=== PATIENT | male | born 1985 | race Caucasian/White ===

== ENCOUNTER 2016-12-27 22:18 | Emergency (ER) | payer BC ==
[~2016-12-27] VITALS: Wt 208.0 kg
[2016-12-27] MEDS ORDERED: ONDANSETRON 4 MG INJ IV STA (22:49)
[2016-12-27] MEDS ORDERED: morphine 4 MG/ML VIAL IV STA (22:49)
[2016-12-27] MEDS ORDERED: SOD CHLORIDE 0.9% 1,000 ML IV STA (22:49)
[2016-12-27] MEDS ORDERED: TAMS-14 PO (23:04)
[2016-12-27] MEDS ORDERED: PHEN-538 PO (23:04)
--- NOTE | 2016-12-27 23:04 | ERD ---
ER Documentation Chief Complaint Date/Time DATE: 12/27/16 TIME: 23:02 Chief Complaint Flank Pain and hematuria for one week. recently diagnosed with kidney stone HPI 28-year-old male presents to emergency department for complaint of flank pain and hematuria for one week now, patient was in a urologist, was diagnosed to have renal stone, patient was given medication ibuprofen and Flomax to help her symptoms with only mild relief, patient discussed the pain as sharp pain, 9/10 scale, is worse upon urination accompanied with hematuria. Patient denies any fever or chills. Patient then got worse tonight. Patient denies any penile discharge. Patient denies any abdominal pain. Patient denies any dizziness. ROS All systems reviewed and are negative except as per history of present illness. Medications Home Meds Reported Medications Phenazopyridine Hcl* (Pyridium*) Unknown Strength Tab, PO TID Y for URINARY PAIN , #6 TAB 12/27/16 Tamsulosin Hcl* (Flomax*) Unknown Strength Cap.er.24h, PO BID, #30 CAP 12/27/16 Allergies Allergies: Coded Allergies: Penicillins (Verified Allergy, Unknown, rash, 12/27/16) metoclopramide (Verified Allergy, Unknown, restlessness, 12/27/16) PMhx/Soc Medical and Surgical Hx: pt denies Medical Hx History of Surgery: Yes ([facility] 2013) Anesthesia Reaction: No Hx Neurological Disorder: No Hx Respiratory Disorders: No Hx Cardiac Disorders: No Hx Psychiatric Problems: No Hx Miscellaneous Medical Probl: No Hx Alcohol Use: No Hx Substance Use: No Hx Tobacco Use: Yes Smoking Status: Former smoker FmHx Family History: No coronary disease, No diabetes, No other Physical Exam Vitals Vital Signs Date Time Temp Pulse Resp B/P Pulse Ox O2 Delivery O2 Flow Rate FiO2 12/27/16 22:23 99.5 108 20 169/97 100 Physical Exam GENERAL: The patient is well developed and appropriate for usual state of health, in no apparent distress. CHEST: Clear to auscultation bilaterally. There are no rales, wheezes or rhonchi. HEART: Regular rate and rhythm. No murmurs, clicks, rubs or gallops. No S3 or S4. ABDOMEN: Soft, nontender and nondistended. Good bowel sounds. No rebound or guarding. No gross peritonitis. No gross organomegaly or masses. No Martinez sign or McBurney point tenderness. BACK: No midline or flank tenderness. EXTREMITIES: Equal pulses bilaterally. There is no peripheral clubbing, cyanosis or edema. No focal swelling or erythema. Full range of motion. Grossly neurovascularly intact. NEURO: Alert and oriented. Cranial nerves 2-12 intact. Motor strength in all 4 extremities with 5/5 strength. Sensation grossly intact. Normal speech and gait. SKIN: There is no apparent rash or petechia. The skin is warm and dry. HEMATOLOGIC AND LYMPHATIC: There is no evidence of excessive bruising or lymphedema. No gross cervical, axillary, or inguinal lymphadenopathy. Result Diagram: 12/27/16230912/27/162309 Results 24 hrs Laboratory Tests Test 12/27/16 23:10 White Blood Count 11.810^3/ul Red Blood Count 4.9110^6/ul Hemoglobin 12.8g/dl Hematocrit 39.1% Mean Corpuscular Volume 79.6fl Mean Corpuscular Hemoglobin 26.1pg Mean Corpuscular Hemoglobin Concent 32.7g/dl Red Cell Distribution Width 14.9% Platelet Count 07533^3/UL Mean Platelet Volume 9.1fl Neutrophils % 76.8% Lymphocytes % 15.2% Monocytes % 5.3% Eosinophils % 1.9% Basophils % 0.4% Nucleated Red Blood Cells % 0.0/100WBC Neutrophils # 9.010^3/ul Lymphocytes # 1.810^3/ul Monocytes # 0.610^3/ul Eosinophils # 0.210^3/ul Basophils # 0.110^3/ul Nucleated Red Blood Cells # 0.010^3/ul Urine Color RED Urine Clarity HAZY Urine pH 7.0 Urine Specific [place] 1.020 Urine Ketones TRACE Urine Nitrite POSITIVE Urine Bilirubin NEGATIVE Urine Urobilinogen 1.0 E.U./dL Urine Leukocyte Esterase 1+ Urine Microscopic RBC 5-10/HPF Urine Microscopic WBC 2-5/HPF Urine Squamous Epithelial Cells FEW Urine Bacteria MANY Urine Mucus FEW Urine Hemoglobin 3+ Urine Glucose NEGATIVE% Urine Total Protein 2+ Sodium Level 140mmol/L Potassium Level 3.9mmol/L Chloride Level 107mmol/L Carbon Dioxide Level 23mmol/L Anion Gap 14 Blood Urea Nitrogen 10mg/dl Creatinine 0.77mg/dl Glucose Level 104mg/dl Calcium Level 9.1mg/dl Total Bilirubin 0.4mg/dl Direct Bilirubin 0.00mg/dl Indirect Bilirubin 0.4mg/dl Aspartate Amino Transf (AST/SGOT) 26IU/L Alanine Aminotransferase (ALT/SGPT) 43IU/L Alkaline Phosphatase 113IU/L Total Protein 7.6g/dl Albumin 4.0g/dl Globulin 3.60g/dl Albumin/Globulin Ratio 1.11 Lipase 85U/L Current Medications Medications (Trade) Dose Ordered Sig/Cat Route PRN Reason Start Time Stop Time Status Last Admin Dose Admin Sodium Chloride (NS) 1,000 ml @ 1,000 mls/hr Q1H STAT IV 12/27/16 22:49 12/27/16 23:48 DC 12/27/16 23:09 Morphine Sulfate (morphine) 6 mg ONCE STAT IV 12/27/16 22:49 12/27/16 22:51 DC 12/27/16 23:09 Ondansetron HCl (Zofran Inj) 4 mg ONCE STAT IV 12/27/16 22:49 12/27/16 22:51 DC 12/27/16 23:04 Hydromorphone HCl (Dilaudid) 1 mg ONCE STAT IV 12/27/16 23:40 12/27/16 23:41 DC 12/27/16 23:43 Phenazopyridine HCl (Pyridium) 200 mg ONCE ONCE PO 12/28/16 00:30 12/28/16 00:31 Diclofenac Sodium (Dyloject) 37.5 mg ONCE STAT IV 12/28/16 00:18 12/28/16 00:22 DC Ketorolac Tromethamine (Toradol) 60 mg ONCE STAT IM 12/28/16 00:20 12/28/16 00:25 DC Diclofenac Sodium 37.5 mg 37.5 mg ONCE STAT IV 12/28/16 00:24 12/28/16 00:25 DC Levofloxacin/ Dextrose (Levaquin 500mg/ D5W 100 ml (Pmx)) 100 ml @ 100 mls/hr ONCE ONCE IVPB 12/28/16 00:30 12/28/16 01:29 Patient was given medication for pain here in emergency department, after treatment, patient verbalized feeling much better. Patient's pain is improved.Patient was given Zofran here in the emergency department. After treatment, patient was able to tolerate po fluids here in the emergency department without any vomiting. There is no signs and symptoms of dehydration. Normal saline IV bolus was given here in emergency department for rehydration, patient tolerated IV fluids. PROCEDURE: ULTRASOUND RETROPERITONEUM CLINICAL INDICATION: 31-year-old male with flank pain. TECHNIQUE: Multiple sonographic images of the retroperitoneum were obtained. The images were reviewed on a PACS workstation. COMPARISON: None. FINDINGS: The kidneys are not able to be visualized secondary to overlying bowel gas. The bladder is not visualized. The inferior vena cava and aorta were not able to be visualized secondary to overlying bowel gas. IMPRESSION: Nondiagnostic retroperitoneal ultrasound since the kidneys and bladder were not able to be visualized secondary to overlying bowel gas. .Gerald Lizama MD, MD Date Time Electronically viewed and signed by .Gerald Lizama MD, MD on 12/28/2016 00:03 .M/ CC: ALEIDA GODINEZ [employer] Procedures/MDM Medical Decision Making: Shortness history of kidney stones, possibly having renal colic pain. patient is currently on antibiotics home, this time, there is mild leukocytosis, most likely from infection, low suspicion for septic stone, patient is not febrile, appears well and is hemodynamically stable. Unable to do CAT scan because of his weight, ultrasound does not show any hydronephrosis, Cannot show the kidney because of the patient's habitus, but no marked enlargement of the kidney noted. Renal function tests are normal. Patient wanted to leave, signing AGAINST MEDICAL ADVICE, I was given a giving IV antibiotics, he insisted I wanted to go home, I also offered for patient to be transferred to a different facility for possible CT scan to rule out obstructive stone or septic stone, but patient refuses at this time and will follow with urologist specialist for further management. Patient was explained of the risks, including sepsis, patient wanted to sign out against medical advise and is verbalizing he will take his on antibiotics microwaving on ciprofloxacin at home. Patient is advised to return if he changes his mind. Departure Diagnosis: Primary Impression: Hematuria Additional Impressions: UTI (urinary tract infection) Urinary tract infection type: acute cystitis Hematuria presence: with hematuria Qualified Code: N30.01 - Acute cystitis with hematuria History of kidney stones Obese Obesity type: unspecified obesity type Obesity severity: unspecified obesity severity Qualified Code: E66.9 - Obesity, unspecified obesity severity , unspecified obesity type Condition: ALEIDA Mckenna NP Dec 27, 2016 23:04
[2016-12-27 23:34] LABS: ADD SCAN DIFF NO
[2016-12-27 23:36] LABS: BASOPHIL # 0.1 10^3/ul (0.0-0.1); BASOPHILS % 0.4 % (0.0-2.0); EOSINOPHILS # 0.2 10^3/ul (0.0-0.5); EOSINOPHILS % 1.9 % (0.0-7.0); HEMATOCRIT 39.1 % (42.0-52.0); HEMOGLOBIN 12.8 g/dl (14.0-18.0); LYMPHOCYTES # 1.8 10^3/ul (0.8-2.9); LYMPHOCYTES % 15.2 % (15.0-51.0); MEAN CORPUSCULAR HEMOGLOBIN 26.1 pg (29.0-33.0); MEAN CORPUSCULAR HGB CONC 32.7 g/dl (32.0-37.0); MEAN CORPUSCULAR VOLUME 79.6 fl (82.0-101.0); MEAN PLATELET VOLUME 9.1 fl (7.4-10.4); MONOCYTE # 0.6 10^3/ul (0.3-0.9); MONOCYTES % 5.3 % (0.0-11.0); NEUTROPHILS % 76.8 % (39.0-77.0); PLATELET COUNT 306 10^3/UL (140-415); RED BLOOD COUNT 4.91 10^6/ul (4.70-6.10); RED CELL DISTRIBUTION WIDTH 14.9 % (11.5-14.5); WHITE BLOOD COUNT 11.8 10^3/ul (4.8-10.8)
[2016-12-27] MEDS ORDERED: HYDROmorphONE 1 MG/ML SYG IV STA (23:40)
[2016-12-27 23:52] LABS: ADD UMIC YES; URINE BILIRUBIN (Dip) NEGATIVE (NEGATIVE); URINE BLOOD (Dip) 3+ (NEGATIVE); URINE COLOR RED (YELLOW); URINE GLUCOSE (Dip) NEGATIVE (NEGATIVE); URINE KETONES (Dip) TRACE (NEGATIVE); URINE LEUKOCYTE ESTERASE (Dip) 1+ (NEGATIVE); URINE NITRITE (Dip) POSITIVE (NEGATIVE); URINE TOTAL PROTEIN (Dip) 2+ (NEGATIVE); URINE UROBILINOGEN (Dip) 1.0 E.U./dL (0.1-1.0)
[2016-12-27 23:55] LABS: ALBUMIN/GLOBULIN RATIO 1.11; BILIRUBIN,INDIRECT 0.4 mg/dl (0-1.1); BILIRUBIN,TOTAL 0.4 mg/dl (0.2-1.3); CALCIUM 9.1 mg/dl (8.4-10.2); CREATININE 0.77 mg/dl (0.61-1.24); POTASSIUM 3.9 mmol/L (3.5-5.1); TOTAL PROTEIN 7.6 g/dl (6.1-8.1)
--- NOTE | 2016-12-28 00:03 | RADRPT ---
PROCEDURE: ULTRASOUND RETROPERITONEUM CLINICAL INDICATION: 31-year-old male with flank pain. TECHNIQUE: Multiple sonographic images of the retroperitoneum were obtained. The images were revi ewed on a PACS workstation. COMPARISON: None. FINDINGS: The kidneys are not able to be visualized secondary to overlying bowel gas. The bladder is not visua lized. The inferior vena cava and aorta were not able to be visualized secondary to overlying bowel gas. IMPRESSION: Nondiagnostic retroperitoneal ultrasound since the kidneys and bladder were not able to be visualize d secondary to overlying bowel gas. .Gerald Lizama MD, MD Date Time Electronically viewed and signed by .Gerald Lizama MD, on 12/28/2016 00:03 .Francisco J/
[2016-12-28 00:16] LABS: BACTERIA,URINE MANY
[2016-12-28 00:17] LABS: MUCUS,URINE FEW; SQUAMOUS EPITHELIAL CELL,UR FEW
[2016-12-28] MEDS ORDERED: DICLOFENAC SODIUM 37.5 MG/ML VIAL IV STA ×2 (00:18→00:24)
[2016-12-28] MEDS ORDERED: KETOROLAC 60 MG INJ IM STA (00:20)
[2016-12-28] MEDS ORDERED: LEVOFLOXACIN 500MG/D5W (PMX) 100 ML IVPB ONE (00:30)
[2016-12-28] MEDS ORDERED: PHENAZOPYRIDINE 100 MG TAB PO ONE (00:30)
== END 2016-12-28 00:36 | disposition left against medical advice (07) ==
LOC: FTE 22:18
DX: N30.01 Acute cystitis with hematuria (principal); E66.9 Obesity, unspecified; Z87.891 Personal history of nicotine dependence
CPT/HCPCS: 36415; 76775; 80053; 81001; 83690; 85025; 96374; 96375; 99285; J1170; J2270; J2405; J7030; 81003

== ENCOUNTER 2019-02-18 21:39 | Emergency (ER) | payer OTHER ==
[~2019-02-18] VITALS: Ht 177.8 cm; Wt 192.2 kg
[~2019-02-18 21:39] MED LIST: PHEN-538 PO; TAMS-14 PO
[2019-02-18 21:40] VITALS: Ht 177.8 cm; Wt 192.2 kg
[2019-02-18] MEDS ORDERED: morphine 4 MG/ML VIAL IV STA (21:49)
[2019-02-18] MEDS ORDERED: SOD CHLORIDE 0.9% 1,000 ML IV STA (21:49)
[2019-02-18] MEDS ORDERED: ONDANSETRON 4 MG INJ IV STA ×2 (21:49→22:42)
--- NOTE | 2019-02-18 22:18 | ERD ---
ER Documentation Chief Complaint Chief Complaint R FLANK PAIN WITH N/V AND HEMATURIA; ACTIVELY VOMITING X3DAYS HPI The patient is a 34-year-old male, presenting to the ER because of recurrent right flank pain morning with a bloody urine, nausea and vomiting of mostly mucus. He had similar symptoms previously from kidney stones. He had multiple ER visits according to [facility]. He was seen by his doctor 4 days ago and had a CAT scan that show a small right kidney stone was given pain medication and Flomax. He was last seen at [facility] about 8 days ago, right flank pain. According to him he was recently diagnosed with right renal carcinoma by his urologist 2 months ago confirmed by right renal biopsy. He is awaiting for surgical and oncological evaluation. He does not smoke nor drink Medical history: Obesity, recently diagnosed right renal carcinoma Past surgical history: Cholecystectomy, appendectomy ROS All systems reviewed and are negative except as per history of present illness. Medications Home Meds Active Scripts Hydrocodone/Acetaminophen (Morton 5-325 Tablet) 1 Each Tablet, 1 EACH PO QID, #8 TAB Prov:EDWIN PINEDA MD 02/18/19 Reported Medications Phenazopyridine Hcl* (Pyridium*) Unknown Strength Tab, PO TID PRN for URINARY PAIN, #6 TAB 12/27/16 Tamsulosin Hcl* (Flomax*) Unknown Strength Cap.er.24h, PO BID, #30 CAP 12/27/16 Allergies Allergies: Coded Allergies: Penicillins (Verified Allergy, Unknown, rash, 12/27/16) metoclopramide (Verified Allergy, Unknown, restlessness, 12/27/16) PMhx/Soc History of Surgery: Yes ([facility] 2013) Anesthesia Reaction: No Hx Neurological Disorder: No Hx Respiratory Disorders: No Hx Cardiac Disorders: No Hx Psychiatric Problems: No Hx Miscellaneous Medical Probl: No Hx Alcohol Use: No Hx Substance Use: No Hx Tobacco Use: Yes Physical Exam Vitals Vital Signs Date Temp Pulse Resp B/P (MAP) Pulse Ox O2 O2 Flow FiO2 Time Delivery Rate 02/18/19 80 24 176/68 98 Room Air 23:38 (104) 02/18/19 98.7 114 18 217/136 99 21:40 (163) Physical Exam Const: No acute distress. Head: Atraumatic. Eyes: Normal Conjunctiva. ENT: Normal External Ears, Nose and Mouth. Neck: Full range of motion. No meningismus. Resp: Clear to auscultation bilaterally. Cardio: Regular rate and rhythm. Abd: Soft, obese, normal bowel sounds, mild right flank tenderness, no rigidity/rebound/CVA tenderness Skin: No petechiae or rashes. Back: No midline or flank tenderness. Ext: No cyanosis, or edema. Neur: Awake and alert. No focal deficit Psych: Normal Mood and Affect. Result Diagram: 02/18/19221902/18/192219 Results 24 hrs Laboratory Tests Test 02/18/19 22:20 White Blood Count 9.8 10^3/ul Red Blood Count 5.48 10^6/ul Hemoglobin 13.4 g/dl Hematocrit 42.1 % Mean Corpuscular Volume 76.8 fl Mean Corpuscular Hemoglobin 24.5 pg Mean Corpuscular Hemoglobin Concent 31.8 g/dl Red Cell Distribution Width 16.4 % Platelet Count 313 10^3/UL Mean Platelet Volume 8.8 fl Immature Granulocytes % 0.400 % Neutrophils % 60.9 % Lymphocytes % 28.5 % Monocytes % 6.5 % Eosinophils % 3.1 % Basophils % 0.6 % Nucleated Red Blood Cells % 0.0 /100WBC Immature Granulocytes # 0.040 10^3/ul Neutrophils # 6.0 10^3/ul Lymphocytes # 2.8 10^3/ul Monocytes # 0.6 10^3/ul Eosinophils # 0.3 10^3/ul Basophils # 0.1 10^3/ul Nucleated Red Blood Cells # 0.0 10^3/ul Urine Color RED Urine Clarity SLIGHTLY CLOUDY Urine pH 6.0 Urine Specific [place] 1.021 Urine Ketones NEGATIVE mg/dL Urine Nitrite NEGATIVE mg/dL Urine Bilirubin NEGATIVE mg/dL Urine Urobilinogen NEGATIVE mg/dL Urine Leukocyte Esterase NEGATIVE [place]/ul Urine Microscopic RBC 64 /HPF Urine Microscopic WBC 8 /HPF Urine Squamous Epithelial Cells FEW /HPF Urine Bacteria FEW /HPF Urine Mucus MODERATE /HPF Urine Hemoglobin 3+ mg/dL Urine Glucose 1+ mg/dL Urine Total Protein 2+ mg/dl Sodium Level 141 mmol/L Potassium Level 3.6 mmol/L Chloride Level 107 mmol/L Carbon Dioxide Level 23 mmol/L Anion Gap 11 Blood Urea Nitrogen 16 mg/dl Creatinine 0.87 mg/dl Est Glomerular Filtrat Rate mL/min > 60 mL/min Glucose Level 119 mg/dl Calcium Level 9.3 mg/dl Total Bilirubin 0.8 mg/dl Direct Bilirubin 0.00 mg/dl Indirect Bilirubin 0.8 mg/dl Aspartate Amino Transf (AST/SGOT) 26 IU/L Alanine Aminotransferase (ALT/SGPT) 43 IU/L Alkaline Phosphatase 103 IU/L Total Protein 7.4 g/dl Albumin 4.1 g/dl Globulin 3.30 g/dl Albumin/Globulin Ratio 1.24 Lipase 111 U/L Current Medications Medications Dose Sig/Cat Start Time Status Last (Trade) Ordered Route PRN Stop Time Admin Dose Reason Admin Sodium 1,000 ml @ Q1H STAT 02/18/19 DC 02/18/19 Chloride 1,000 mls/hr IV 21:49 22:15 02/18/19 22:48 Morphine 4 mg ONCE STAT 02/18/19 DC 02/18/19 Sulfate IV 21:49 22:14 (morphine) 02/18/19 21:50 Ondansetron 4 mg ONCE STAT 02/18/19 DC 02/18/19 HCl (Zofran IV 21:49 22:14 Inj) 02/18/19 21:50 1 mg ONCE ONCE 02/18/19 Cancel Hydromorphone IV 22:46 HCl 02/18/19 22:47 (Dilaudid) Ketorolac 30 mg ONCE STAT 02/18/19 DC 02/18/19 Tromethamine IV 22:42 22:52 (Toradol) 02/18/19 22:46 Ondansetron 4 mg ONCE STAT 02/18/19 DC 02/18/19 HCl (Zofran IV 22:42 22:52 Inj) 02/18/19 22:46 1 mg ONCE STAT 02/18/19 DC 02/18/19 Hydromorphone IV 23:30 23:34 HCl 02/18/19 23:31 (Dilaudid) Procedures/MDM MEDICAL MAKING DECISION: The patient is a 34-year-old male, presenting with acu te renal colic, was treated with 1 L normal saline, morphine 4 mg IV, Dilaudid 1 mg IV, Toradol 30 mg IV for pain, Zofran 4 mg IV x2 for now sent with good response, is stable for outpatient follow-up. Blood pressure improved The differential diagnoses considered include but are not limited to cho ledocholithiasis, cholangitis, pancreatitis, hepatitis, gastritis, peptic ulcer disease, gastric ulcer, cystitis, diverticulitis, partial small bowel obstruction. Departure Diagnosis: Primary Impression: Renal colic on right side Additional Impression: Anemia Condition: Good Comments The patient's blood pressure was elevated (>120/80) but appears stable without evidence of hypertension emergency or urgency. The patient was counseled about the risks of hypertension and urged to pursue outpatient monitoring and therapy within a week with their primary care physician. He was advised to continue Flomax, discharged with 8 tablets of [place] 5 mg I discussed the findings with the patient. I advised the patient to follow-up with the primary physician/urologist/oncologist in about 2-3 days, sooner if needed and return if any concern. Disclaimer: Inadvertent spelling and grammatical errors are likely due to EHR/dictation software use and do not reflect on the overall quality of patient care. Also, please note that the electronic time recorded on this note does not necessarily reflect the actual time of the patient encounter. EDWIN PINEDA MD Feb 18, 2019 22:18
[2019-02-18] MEDS ORDERED: KETOROLAC 30 MG INJ IV STA (22:42)
[2019-02-18] MEDS ORDERED: HYDROmorphONE 1 MG/ML SYG IV ONE (22:46)
[2019-02-18] MEDS ORDERED: HYDROmorphONE 0.5 MG/0.5 ML SYG IV STA (23:30)
[2019-02-18 23:38] VITALS: BP 176/68; PULSE 80; RESP 24
[2019-02-18] MEDS ORDERED: HYDR-4011 PO (23:52)
== END 2019-02-19 00:03 | disposition home or self-care (01) ==
LOC: E/R 21:39
DX: N23 Unspecified renal colic (principal); D64.9 Anemia, unspecified; Z85.528 Personal history of other malignant neoplasm of kidney
CPT/HCPCS: 36415; 80053; 81001; 83690; 85025; 96374; 96375; 96376; 99284; J1170; J1885; J2270; J2405; J7030